=== PATIENT | male | born 1965 | race Caucasian/White ===

== ENCOUNTER 2017-12-12 23:52 | Inpatient (IN) ==
[2017-12-13] MEDS ORDERED: CEFEPIME 1 GM in NS 100 ML IV ONE (00:03)
[2017-12-13] MEDS ORDERED: LEVOFLOXACIN PB 750 MG/150 ML BAG IV ONE (00:03)
[2017-12-13] MEDS ORDERED: NS 1,000 ML IV ONE ×2 (00:03→01:38)
[2017-12-13] MEDS ORDERED: ALBUTEROL/IPRATROPIUM 2.5mg-0.5mg/3ml NEB AEROSOL ONE (00:08)
--- NOTE | 2017-12-13 00:09 | Emergency Department Report ---
Fever HPI - General Chief Complaint: Fever Stated Complaint: Sepsis Time Seen by Provider: 12/13/17 00:03 Source: patient, EMS, RN notes reviewed Mode of arrival: EMS Limitations: altered mental status - History of Present Illness HPI Narrative: Patient was diagnosed with right lower lobe pneumonia 2 days ago, and placed on Levaquin 500 milligrams daily. He has had 2 doses. Tonight when prison staff checked on him, the patient was incoherent, had significant decreased level of consciousness, had a fever of 102.8, was tachycardic in the 130s, and hypotensive. EMS was called for transport to the ER for probable sepsis. The patient's significant illness and schizophrenia, he is contributing very little to his medical history at this time. He is able to follow simple commands. - Related Data Home Medications Medication Instructions Recorded Confirmed Albuterol Sulfate [Proair Hfa] 2 puff INH Q6H PRN 12/13/17 12/13/17 Aspirin 1 tab PO DAILY 12/13/17 12/13/17 Benztropine [Cogentin] 0.5 tab PO DAILY 12/13/17 12/13/17 Calcium 500 + D [Os Andrea-D 500] 1 tab PO BID 12/13/17 12/13/17 Cholecalciferol (Vitamin D3) 1 tab PO DAILY 12/13/17 12/13/17 [Vitamin D3] Divalproex ER [Depakote ER] 3 tab PO HS 12/13/17 12/13/17 Fluticasone HFA [Flovent Hfa 110 1 puff INH BID 12/13/17 12/13/17 mcg] Furosemide [Lasix 20 mg Tab] 1 tab PO DAILY 12/13/17 12/13/17 Haloperidol 1 tab PO BID 12/13/17 12/13/17 Levofloxacin [Levaquin] 500 mg PO DAILY 12/13/17 12/13/17 Paliperidone Tab [Invega] 6 mg PO DAILY 12/13/17 12/13/17 Potassium Citrate [Potassium 10 meq PO DAILY 12/13/17 12/13/17 Citrate ER] Quetiapine Fumarate [Seroquel] 300 mg PO BID 12/13/17 12/13/17 Tiotropium Handihaler [Spiriva] 1 cap ORAL INH DAILY 12/13/17 12/13/17 Allergies Allergy/AdvReac Type Severity Reaction Status Date / Time No Known Allergies Allergy Verified 12/13/17 00:21 [facility] Patient Stated Medical History Chronic Obstructive Pulmonary Yes Disease (COPD) Other Musculoskeletal Yes: osteopenia Bipolar Disorder Yes Schizophrenia Yes: schizo-affective Schizophrenia/schizoaffective disorder Bipolar Bronchitis/COPD Tobacco addiction/abuse Periodic hypoxemia Osteopenia Surgical History: Unknown - Social History Smoking status: Current every day smoker Physical Exam - Limitations Limitations: altered mental status - General General appearance: in distress (patient is tachycardic, borderline hypotensive at 108/65, and O2 saturations are borderline low at 91-94% on room air. Positive diaphoresis, Patient does not appear to have any significant respiratory distress at this time however) - Normal Exams: Head:: Normocephalic without trauma Eyes:: Pupils are PERRLA w/ EOMI, No scleral icterus, irritation, or foreign bodies noted ENMT:: No facial trauma, nasal exudates, pharyngeal erythema, or exudates are noted Neck:: Full range of motion, without adenopathy, JVD, bruits or thyromegaly Abdomen:: Bowel sounds positive, soft, non-tender, non-distended, no hepatosplenomegaly, masses or bruits noted Lymphatic:: No lymphadenopathy, or lymphedema noted Musculoskeletal:: No tenderness, or deformity noted, good range of motion, all extremities Integumentary:: No rashes, hives, or bruising noted, hair and nails, without abnormality Neurological:: Patient is alert, and oriented, cranial nerves, motor/sensory/ cerebellar, exams w/o gross deficits, to observation Psychiatric:: Patient exhibits, appropriate attention, emotion and affect - Chest Chest inspection: Present: normal inspection, symmetric chest wall rise. Absent : tenderness - Respiratory Respiratory exam: Present: wheezes, prolonged expiratory phase. Absent: normal lung sounds bilaterally (course bilateral, mild wheezes in the bases), respiratory distress, stridor, accessory muscle use Course Vital Signs Temperature 97.8 F 12/12/17 23:52 Pulse Rate 121 H 12/12/17 23:52 Respiratory Rate 24 12/12/17 23:52 Blood Pressure 102/61 12/12/17 23:52 Pulse Oximetry 93 12/12/17 23:52 Temperature 97.8 F 12/12/17 23:52 Pulse Rate 104 H 12/13/17 01:00 Respiratory Rate 21 12/13/17 01:00 Blood Pressure 92/55 12/13/17 01:00 Pulse Oximetry 95 12/13/17 01:00 Fever - MDM Narrative Medical decision making narrative: Sepsis protocol was started and the patient, with IV fluid boluses, blood and urine cultures, cefepime will Levaquin and vancomycin are started after cultures are drawn. Patient is also given 2 DuoNeb's Patient is incontinent of urine, and with his critical state felt that fully catheter for accurate I stenosis appropriate. CBC - elevated white blood cell count with significant left shift to 10% bands CMP -minimal abnormalities Lactate -normal CXR - significant consolidations in the right upper and right middle lobes He is pending, as the patient was incontinent upon arrival, Nichols catheter is having to be placed, and patient has been resistant to this up to now Triple Antibiotic regimen has been started, second liter normal saline has been started as well Case is discussed with Dr. Zavala, we'll admit to CCU inpatient for by lobar pneumonia with severe sepsis - Lab Data Result diagrams: 12/13/17 00:20 12/13/17 00:20 Lab Results 12/13/17 12/13/17 12/13/17 Range/Units 00:20 00:20 00:20 WBC 14.2 H D (4.5-11.0) T/MM3 RBC 3.23 L (4.50-5.90) M/MM3 Hgb 10.8 L (13.5-17.5) GM/DL Hct 29.6 L (41-53) % MCV 91.6 (80-100) UM3 MCH 33.4 (26-34) UUG MCHC 36.5 (31-37) GM/DL RDW Std Deviation 45.9 (36.9-50.2) FL Plt Count 263 (130-400) T/MM3 MPV 8.7 L (9.4-12.4) UM3 Immature Gran % (Auto) Not performed Neut % (Auto) Not performed Lymph % (Auto) Not performed [place] % (Auto) Not performed Eos % (Auto) Not performed Baso % (Auto) Not performed Neut # (Auto) Not performed Lymph # (Auto) Not performed [place] # (Auto) Not performed Eos # (Auto) Not performed Baso # (Auto) Not performed Abs Immat Gran (auto) Not performed Neutrophils % (Manual) 75.0 H (33-66) % Band Neutrophils % 10.0 H (0-6) % Lymphocytes % (Manual) 6.0 L (23-45) % Monocytes % (Manual) 8.0 (0-9.0) % Eosinophils % (Manual) 1.0 (0-4) % Neutrophils # (Manual) 10.7 H (1.8-7.7) T/MM3 Band Neutrophils # 1.4 T/MM3 Lymphocytes # (Manual) 0.9 L (1-4.8) T/MM3 Monocytes # (Manual) 1.1 H (0-0.8) T/MM3 Eosinophils # (Manual) 0.1 (0-0.5) T/MM3 RBC Morph Comment Normal Turbidity < 20 (0-20) Sodium 128 L D (136-146) MEQ/L Potassium 3.8 (3.6-5) MEQ/L Chloride 96 L (98-107) MEQ/L Carbon Dioxide 22 (22-30) MEQ/L Anion Gap 10 (5-15) meq/L BUN 10.0 D (9-20) MG/DL Creatinine 1.0 D (0.8-1.5) mg/dL Estimated Creat Clear 95 (>50) mL/min GFR Calculation 78 (>60) mL/min BUN/Creatinine Ratio 10 (6-26) RATIO Glucose 103 (75-110) MG/DL Calculated Osmolality 246 L (261-280) MOSM/KG Calcium 8.6 (8.4-10.2) MG/DL Total Bilirubin 0.50 (0.20-1.30) MG/DL Icterus Index < 2 (0-7) AST 18 (17-59) U/L ALT 12 (1-50) U/L Alkaline Phosphatase 79 (38-126) U/L Total Protein 6.6 (6.3-8.2) g/dL Albumin 3.4 L (3.5-5.0) g/dL Globulin 3.2 (2.4-3.6) G/DL Albumin/Globulin Ratio 1.1 (1.1-2.2) RATIO Plasma Lactate 0.7 (0.6-2.2) MMOL/L Specimen Hemolysis < 15 (0-25) Critical Care Time Critical Care Time: Yes Total Critical Care Time: 45 Attestation: Required aggressive interventions and diagnostics for severe sepsis with pneumonia, hypotension, tachycardia, and difficulty breathing. Disposition Clinical Impression: Severe sepsis Pneumonia Qualifiers: Pneumonia type: due to unspecified organism Laterality: right Lung location: upper lobe of lung Qualified Code(s): J18.1 - Lobar pneumonia, unspecified organism Disposition: 02 To [facility] Acute Care Condition: Stable Prescriptions: No Action Paliperidone Tab [Invega] 6 mg PO DAILY Benztropine [Cogentin] 0.5 tab PO DAILY Tiotropium Handihaler [Spiriva] 1 cap ORAL INH DAILY Fluticasone HFA [Flovent Hfa 110 mcg] 1 puff INH BID Cholecalciferol (Vitamin D3) [Vitamin D3] 1 tab PO DAILY Haloperidol 1 tab PO BID Calcium 500 + D [Os Andrea-D 500] 1 tab PO BID Albuterol Sulfate [Proair Hfa] 2 puff INH Q6H PRN PRN Reason: Shortness Of Air/Wheezing Furosemide [Lasix 20 mg Tab] 1 tab PO DAILY Levofloxacin [Levaquin] 500 mg PO DAILY Quetiapine Fumarate [Seroquel] 300 mg PO BID Divalproex ER [Depakote ER] 3 tab PO HS Potassium Citrate [Potassium Citrate ER] 10 meq PO DAILY Aspirin 1 tab PO DAILY Referrals: Jennifer Thomas MD [Primary Care Provider] - - Seen By: physician
[2017-12-13] MEDS: SALINE FLUSH 10ml SYRINGE IVF PRN ×2 (00:23→21:03)
--- NOTE | 2017-12-13 01:55 | History & Physical Report ---
History of Present Illness Date: 12/13/17 Chief complaint: fever, cough, pneumonia HPI: Renato is a 52 y/o with h/o schizophrenia, bipolar, COPD who lives in [place] and presents to ED [facility] w/ having had high fever at [place] (102.9F), worsening cough and acute mental status changes. Patient diagnosed w/ pneumonia 2 days ago and started on Levaquin and has had 2 dose however despite treatment patient continued to get worse. Patient given Tylenol prior to leaving [facility] and arrived in ER and was Afebrile, however noted to have low BP and still w/ altered level of consciousness. In ER patient's sats okay on RA (94-96%) however he was tachypneic and tachycardic and BP most recently was 96/54. Tachycardia has improved w/ NS - currently on 2nd L of NS Patient has been given Cefipime, Levaquin and Vancomycin IV in the Er. Patient 's CXR showes RML and base of RUL pneumonia/consolidation, WBC is 14K however lactate is wnl. Na = 128. Patient has improved w/ 2 DuoNeb treatments, the IVFs and the antibiotics. BP still low so will admit the patient to CCU on the Hospitalist service for further evaluation and management. Past Medical History Medical History Updates: H/o Schizophrenia, bipolar disorder, COPD and osteopenia Surgical History: Unknown Family History: No significant family history reported Family History: As Above - Social History Smoking status: Current every day smoker Medications Home Medications Medication Instructions Recorded Confirmed Type Albuterol Sulfate [Proair Hfa] 2 puff INH Q6H PRN 12/13/17 12/13/17 History Aspirin 1 tab PO DAILY 12/13/17 12/13/17 History Benztropine [Cogentin] 0.5 tab PO DAILY 12/13/17 12/13/17 History Calcium 500 + D [Os Andrea-D 500] 1 tab PO BID 12/13/17 12/13/17 History Cholecalciferol (Vitamin D3) 1 tab PO DAILY 12/13/17 12/13/17 History [Vitamin D3] Divalproex ER [Depakote ER] 3 tab PO HS 12/13/17 12/13/17 History Fluticasone HFA [Flovent Hfa 110 1 puff INH BID 12/13/17 12/13/17 History mcg] Furosemide [Lasix 20 mg Tab] 1 tab PO DAILY 12/13/17 12/13/17 History Haloperidol 1 tab PO BID 12/13/17 12/13/17 History Levofloxacin [Levaquin] 500 mg PO DAILY 12/13/17 12/13/17 History Paliperidone Tab [Invega] 6 mg PO DAILY 12/13/17 12/13/17 History Potassium Citrate [Potassium 10 meq PO DAILY 12/13/17 12/13/17 History Citrate ER] Quetiapine Fumarate [Seroquel] 300 mg PO BID 12/13/17 12/13/17 History Tiotropium Handihaler [Spiriva] 1 cap ORAL INH DAILY 12/13/17 12/13/17 History Allergies Allergy/AdvReac Type Severity Reaction Status Date / Time No Known Allergies Allergy Verified 12/13/17 00:21 Exam Vital Signs: Temperature 97.8 F 12/12/17 23:52 Pulse Rate 104 H 12/13/17 01:00 Respiratory Rate 21 12/13/17 01:00 Blood Pressure 92/55 12/13/17 01:00 Pulse Oximetry 95 12/13/17 01:00 Telemetry Rhythm: Sinus Rhythm Height/Weight/BMI: Height 1.85 m Weight 76.8 kg - Constitutional Present: no acute distress, somnolent - Routine HEENT Exam Head: Present: normocephalic, atraumatic Eye: Present: EOMI, PERRL ENT: Present: mucous membranes dry, nares patent - Routine Neck Exam Present: supple. Absent: JVD - Routine Respiratory Exam Present: rhonchi, crackles. Absent: accessory muscle use, patient mechanically ventilated, dyspnea - Routine Cardiovascular Exam Present: RRR, S1, S2, tachycardia (mild) - Routine Abdominal Exam Present: soft, normoactive bowel sounds, non distended, non tender - Routine Extremities Exam Absent: cyanosis, clubbing, edema - Routine Neurological Exam Present: alert (wakes easily and is alert and awake for short period of time then returns to sleep) Results - Labs CBC & Chem 7: 12/13/17 04:48 12/13/17 04:48 Microbiology Results: Microbiology 12/13/17 00:20 Peripheral/Iv Start Blood Culture - Preliminary Culture Initiated - Results Pending 12/13/17 00:20 Peripheral/Iv Start Blood Culture - Preliminary Culture Initiated - Results Pending Assessment and Plan Assessment and Plan: Assessment: 1) Acute RML and RUL Pneumonia - failed outpatient therapy. HCAP as patient resides [place] 2) Acute Sepsis 3) Acute Dehydration 4) COPD exacerbation 5) Schizophrenia and Bipolar Disorder Plan: Cefepime 1g q 8 hours IV Vancomycin 1g q 24 hours - pharmacy to manage Levaquin 750mg IV q 24 hours IVFs that of NS at 125 cc/hour CLD when more awake and alert and able to follow commands and sit up SCDs Lovenox 40mg SQ once daily starting in AM [place] catheter to be placed in ER Labs in AM Patient to receive total of 2L IVFs in ER Blood cultures pending Home meds as indicated - hold Lasix and KCL SoluMedrol 125mg IV q 12 hours today, then reassess for further need DuoNeb sched q 6 hours Albuterol neb q2 hours prn Supportive care in the CCU Attending physician addendum 12/13/17: The patient was seen and examined by me this morning; admitted overnight after midnight. Chart reviewed as well as H&P, orders, medications, vitals and I/Os. Making urine, has munroe intact. On room air this morning, resting comfortably. Blood pressures have been stable overnight. Initially received 2L IVF and now on saline at 125 cc/hour. No wheezing on my lung exam; no edema. + scattered rhonchi on the right. Developing metabolic acidosis with saline administration; bicarb 19. Hypomagnesemic today; Mg 1.6 UA reviewed and unremarkable - Stop saline and start LR at 75 cc/hour for maintenance - When more awake and alert today will advance diet if tolerated - Continue cefepime, vancomycin per pharmacy, levaquin IV for broad coverage and follow culture results - Replete Mg with 2g IV over 6 hours - Continue IV protonix; will change to po if awake and taking po later today - Continue home psych medications - Surveillance labs in AM including BMP, CBC, Mg level - Duoneb treatments, IV solumedrol scheduled for COPD exacerbation component of acute resp failure - If vitals stable, more alert and taking po this afternoon will likely move to the floor at that time Discussed with bedside RN. DVT Prophylaxis: SCD's, Lovenox GI Prophylaxis: Protonix Resuscitation Status: Full Code - Physician Narrative Narrative: Date: 12/13/17 Time: 0148 Hospital Course Summary Disclaimer: The visit summary below is not to be considered part of the above Progress Note.
[2017-12-13] MEDS ORDERED: NS 1,000 ML IV SCH ×2 (02:15→02:45)
[2017-12-13] MEDS ORDERED: VANCOMYCIN - PHARMACY CONSULT MC ONE (02:15)
[2017-12-13] MEDS ORDERED: ACETAMINOPHEN 325 MG TABLET PO PRN (02:15)
[2017-12-13] MEDS ORDERED: ALBUTEROL 2.5mg/3ml (0.083%) NEB AEROSOL PRN (02:34)
[2017-12-13] MEDS: METHYLPREDNISOLONE SOD SUCC 125mg/2ml INJECTION IVP SCH ×3 (02:45→21:03)
[2017-12-13 02:55] VITALS: BMI 58.9
[2017-12-13] MEDS ORDERED: FALL RISK - PHARMACY CONSULT MC ONE (03:10)
[2017-12-13] MEDS: BUDESONIDE INH.SOLN 0.5mg/2ml NEB AEROSOL SCH ×2 (06:28→20:15)
[2017-12-13] MEDS: ALBUTEROL/IPRATROPIUM 2.5mg-0.5mg/3ml NEB AEROSOL SCH ×4 (06:28→20:15)
[2017-12-13] MEDS: CEFEPIME 1 GM in NS 100 ML IV SCH ×2 (08:59→16:50)
[2017-12-13] MEDS: ENOXAPARIN 40 MG/0.4 ML INJECTION SQ SCH (08:59)
[2017-12-13] MEDS ORDERED: FLluticasone HFA 110mcg inhaler ORAL INH SCH (09:00)
[2017-12-13] MEDS ORDERED: PANTOPRAZOLE 40 MG INJECTION IVP SCH (09:00)
[2017-12-13] MEDS: ASPIRIN 81 MG CHEWABLE TABLET PO SCH (09:30)
[2017-12-13] MEDS: BENZTROPINE 1 MG TABLET PO SCH (09:31)
[2017-12-13] MEDS: CALCIUM 500 + VIT D 200 TABLET PO SCH ×2 (09:31→21:03)
[2017-12-13] MEDS: HALOPERIDOL 1 MG TABLET PO SCH ×2 (09:32→21:03)
[2017-12-13] MEDS: QUETIAPINE 100 MG TABLET PO SCH ×2 (09:32→21:02)
[2017-12-13] MEDS: PALIPERIDONE ER 1.5mg TABLET PO SCH (09:33)
--- NOTE | 2017-12-13 10:03 | Pharmacy Consult-Antibiotics ---
Pharmacy Consult-Vancomycin - Laboratory Information WBC 12.6 T/MM3 (4.5-11.0) H 12/13/17 04:48 BUN 8.0 MG/DL (9-20) L 12/13/17 04:48 Creatinine 0.6 mg/dL (0.8-1.5) L D 12/13/17 04:48 - Consult Information VANCOMYCIN CONSULT: Dx: SEPSIS 52 y.o. Male with recent outpatient diagnosis of pneumonia and Levaquin therapy , fever of 102.9, worsening cough admitted to CCU. Cefepime, and Vancomycin added to Levaquin for empiric treatment of Sepsis goal Vancomycin trough range= 15 to 20 mcg/ml Current Renal Fx: SCr = 0.6 mg/dl. Will give Vancomycin 2,000 mg IV q8hrs. Will continue to monitor and adjust regimen to maintain therapeutic levels. Thank you. Arpita Coleman [facility]
[2017-12-13] MEDS: MAGNESIUM SULFATE 1gm PREMIX 1 GM/100 ML BAG IV SCH ×2 (10:27→11:32)
[2017-12-13] MEDS: LR 1,000 ML IV SCH (10:34)
--- NOTE | 2017-12-13 13:20 | XRay Report ---
Indication: pneumonia, sepsis XR chest 1V: Comparison: 12/10/2017 Technique: Single view chest Findings: Patient showed significantly more dense consolidation involving the right upper lobe on the current study compared to the previous examination. This suggests pneumonic infiltrate. Heart, mediastinum and central vascularity are unremarkable. Mild chronic changes seen on the left chest. Impression: Patient now shows significant consolidation in the lateral lower aspect of the right upper lobe consistent with pneumonia. Follow-up after medical treatment recommended. .
[2017-12-13] MEDS: LEVOFLOXACIN PB 750 MG/150 ML BAG IV SCH (23:16)
[2017-12-14] MEDS: CEFEPIME 1 GM in NS 100 ML IV SCH ×3 (04:27→15:10)
[2017-12-14] MEDS: LR 1,000 ML IV SCH ×2 (04:57→15:07)
[2017-12-14] MEDS: PANTOPRAZOLE 40 MG TABLET PO SCH (06:50)
[2017-12-14] MEDS: BUDESONIDE INH.SOLN 0.5mg/2ml NEB AEROSOL SCH ×5 (07:13→20:55)
[2017-12-14] MEDS: ALBUTEROL/IPRATROPIUM 2.5mg-0.5mg/3ml NEB AEROSOL SCH ×4 (07:13→19:59)
[2017-12-14] MEDS: METHYLPREDNISOLONE SOD SUCC 125mg/2ml INJECTION IVP SCH ×2 (08:24→20:32)
[2017-12-14] MEDS: PALIPERIDONE ER 1.5mg TABLET PO SCH (08:26)
[2017-12-14] MEDS: QUETIAPINE 100 MG TABLET PO SCH ×2 (08:26→20:33)
[2017-12-14] MEDS: ENOXAPARIN 40 MG/0.4 ML INJECTION SQ SCH (08:26)
[2017-12-14] MEDS: CALCIUM 500 + VIT D 200 TABLET PO SCH ×2 (08:27→20:32)
[2017-12-14] MEDS: HALOPERIDOL 1 MG TABLET PO SCH ×2 (08:27→20:32)
[2017-12-14] MEDS: ASPIRIN 81 MG CHEWABLE TABLET PO SCH (08:27)
[2017-12-14] MEDS: BENZTROPINE 1 MG TABLET PO SCH (08:27)
--- NOTE | 2017-12-14 10:35 | Progress Note ---
- Date 12/14/17 Subjective: Mr Franz is seen today in follow-up. He is sitting up in the chair, currently breathing on room air without evidence of distress. He does report having continued cough that is nonproductive. He reports that when he coughs. He has discomfort in the right side of his chest. He denies feeling short of breath or having nausea or lightheadedness. Appetite is good, as he did eat 100% of breakfast today. Urinating without difficulty. Objective Vital signs: Temperature 97.0 F 12/14/17 07:32 Pulse Rate 99 12/14/17 07:32 Respiratory Rate 18 12/14/17 07:32 Blood Pressure 124/82 12/14/17 07:32 Pulse Oximetry 93 12/14/17 07:32 Height/Weight/BMI: Height 1.73 m Weight 83.2 kg Body Mass Index 58.9 - Constitutional Present: no acute distress, well nourished, well developed - Routine HEENT Exam Eye: Present: EOMI ENT: Present: mucous membranes moist, dentition normal - Routine Respiratory Exam Present: diminished air movement (bilateral - posterior). Absent: wheezes - Routine Cardiovascular Exam Present: RRR, S1, S2. Absent: murmur - Routine Abdominal Exam Present: soft, normoactive bowel sounds, non distended. Absent: tenderness - Routine Extremities Exam Present: no edema - Routine Skin Exam Present: intact, dry, warm - Routine Neurological Exam Present: alert, oriented X3, CN II-XII intact - Routine Lymphatic Exam Lymphatic: Absent: adenopathy - Routine Psychiatric Exam Present: cooperative Results - Labs CBC & Chem 7: 12/14/17 06:40 12/14/17 06:40 Microbiology Results: Microbiology 12/13/17 00:20 Peripheral/Iv Start Blood Culture - Preliminary No Growth After 1 Day 12/13/17 00:20 Peripheral/Iv Start Blood Culture - Preliminary No Growth After 1 Day Assessment and Plan Assessment and Plan: Assessment: Acute RML and RUL Pneumonia - failed outpatient therapy. HCAP as patient resides in [place] Acute Sepsis- POA Leukocytosis- ? r/t IV steroid use Hyponatremia Acute Dehydration COPD exacerbation Schizophrenia and Bipolar Disorder Plan: Continue on scheduled DuoNeb and Pulmicort breathing treatments. Continue with antibiotic treatment including cefepime, Levaquin, and vancomycin for triple coverage. Continue home psych medications Noted increasing leukocytosis today from 12.6, up to 20.1-may be secondary to IV steroid use. Persistent hyponatremia-will continue to follow. May consider changing IV fluids Patient continues on LR at 75 mL per hour for ongoing hydration. Encourage ambulation TID Check CBC and BMP tomorrow morning to follow blood counts, renal function and electrolytes DVT Prophylaxis: SCD's, Lovenox GI Prophylaxis: Protonix Resuscitation Status: Full Code - Physician Narrative Physician: Kathleen Miranda MD Narrative: Date: 12/14/17 Time: 1639 I have independently evaluated and examined this patient. I reviewed the chart, the patient's history, and the [employer]/PA's documented findings as above. We discussed and formulated the assessment and plan as above with additions as below: Renato describes mild ache in his right anterior chest with cough but denies sputum production or dyspnea. Oxygen has been titrated off. White count remains elevated with 32% bands on differential today. NAD, speech slightly mumbled Respirations nonlabored but breath sounds diminished; slightly coarse anteriorly on the right Admission chest x-ray with right upper/middle lobe infiltrates-raises question of aspiration pneumonia; repeat chest x-ray in a.m. Speech therapy to be consulted Sputum culture ordered Nursing reports good oral intake-IV fluids discontinued Hyponatremia likely result of psychiatric medications. Valproic acid level with a.m. labs. Hospital Course Summary Disclaimer: The visit summary below is not to be considered part of the above Progress Note. Hospital Course: Assessment: 1) Acute RML and RUL Pneumonia - failed outpatient therapy. HCAP as patient resides in [place] 2) Acute Sepsis 3) Acute Dehydration 4) COPD exacerbation 5) Schizophrenia and Bipolar Disorder Plan: Cefepime 1g q 8 hours IV Vancomycin 1g q 24 hours - pharmacy to manage Levaquin 750mg IV q 24 hours IVFs that of NS at 125 cc/hour CLD when more awake and alert and able to follow commands and sit up SCDs Lovenox 40mg SQ once daily starting in AM [place] catheter to be placed in ER Labs in AM Patient to receive total of 2L IVFs in ER Blood cultures pending Home meds as indicated - hold Lasix and KCL SoluMedrol 125mg IV q 12 hours today, then reassess for further need DuoNeb sched q 6 hours Albuterol neb q2 hours prn Supportive care in the CCU Attending physician addendum 12/13/17: The patient was seen and examined by me this morning; admitted overnight after midnight. Chart reviewed as well as H&P, orders, medications, vitals and I/Os. Making urine, has munroe intact. On room air this morning, resting comfortably. Blood pressures have been stable overnight. Initially received 2L IVF and now on saline at 125 cc/hour. No wheezing on my lung exam; no edema. + scattered rhonchi on the right. Developing metabolic acidosis with saline administration; bicarb 19. Hypomagnesemic today; Mg 1.6 UA reviewed and unremarkable - Stop saline and start LR at 75 cc/hour for maintenance - When more awake and alert today will advance diet if tolerated - Continue cefepime, vancomycin per pharmacy, levaquin IV for broad coverage and follow culture results - Replete Mg with 2g IV over 6 hours - Continue IV protonix; will change to po if awake and taking po later today - Continue home psych medications - Surveillance labs in AM including BMP, CBC, Mg level - Duoneb treatments, IV solumedrol scheduled for COPD exacerbation component of acute resp failure - If vitals stable, more alert and taking po this afternoon will likely move to the floor at that time 12/14/17 Continue on scheduled DuoNeb and Pulmicort breathing treatments. Continue with antibiotic treatment including cefepime, Levaquin, and vancomycin for triple coverage. Continue home psych medications. Noted increasing leukocytosis today from 12.6, up to 20.1-may be secondary to IV steroid use. Persistent hyponatremia-will continue to follow. May consider changing IV fluids.
[2017-12-14] MEDS: VANCOMYCIN 2,000 MG in NS 500 ML IV SCH (16:30)
[2017-12-14] MEDS: SALINE FLUSH 10ml SYRINGE IVF PRN (20:34)
[2017-12-14] MEDS: LEVOFLOXACIN PB 750 MG/150 ML BAG IV SCH (23:37)
[2017-12-15] MEDS: CEFEPIME 1 GM in NS 100 ML IV SCH ×4 (01:10→23:56)
[2017-12-15] MEDS: VANCOMYCIN 2,000 MG in NS 500 ML IV SCH ×2 (01:45→09:38)
[2017-12-15] MEDS: ALBUTEROL/IPRATROPIUM 2.5mg-0.5mg/3ml NEB AEROSOL SCH ×4 (05:30→19:30)
[2017-12-15] MEDS: BUDESONIDE INH.SOLN 0.5mg/2ml NEB AEROSOL SCH ×2 (05:30→19:30)
[2017-12-15] MEDS: PANTOPRAZOLE 40 MG TABLET PO SCH (06:46)
--- NOTE | 2017-12-15 08:02 | XRay Report ---
INDICATION: pneumonia PROCEDURE: CHEST 2-VIEWS UPRIGHT (PA & LAT) Encounter: Initial COMPARISON: December 13, 2017 FINDINGS: Right upper lobe airspace consolidation has improved with a moderate amount remaining. Patchy airspace opacities in the left and right lower lobes are stable. Small pleural effusions are stable. No pneumothorax. Heart size and mediastinal contours are stable. Pulmonary vascularity is unchanged. Impression: Slight improvement in the right upper lobe pneumonia. .
[2017-12-15] MEDS: PALIPERIDONE ER 1.5mg TABLET PO SCH (08:16)
[2017-12-15] MEDS: CALCIUM 500 + VIT D 200 TABLET PO SCH ×2 (08:16→20:13)
[2017-12-15] MEDS: ASPIRIN 81 MG CHEWABLE TABLET PO SCH (08:16)
[2017-12-15] MEDS: HALOPERIDOL 1 MG TABLET PO SCH ×2 (08:16→20:13)
[2017-12-15] MEDS: QUETIAPINE 100 MG TABLET PO SCH ×2 (08:17→20:12)
[2017-12-15] MEDS: BENZTROPINE 1 MG TABLET PO SCH (08:17)
[2017-12-15] MEDS: METHYLPREDNISOLONE SOD SUCC 125mg/2ml INJECTION IVP SCH ×2 (08:18→20:13)
[2017-12-15] MEDS: ENOXAPARIN 40 MG/0.4 ML INJECTION SQ SCH (08:18)
--- NOTE | 2017-12-15 14:40 | Progress Note ---
- Date 12/15/17 Subjective: Renato feels quite well today and inquires about being discharged from the hospital. He denies any SOA or cough or chest pain. He denies feeling weak or dizzy with standing or ambulation. He denies abdominal pain or nausea and reports that he's been eating and drinking fine. Objective Vital signs: Temperature 96.9 F 12/15/17 07:12 Pulse Rate 100 12/15/17 07:12 Respiratory Rate 18 12/15/17 14:17 Blood Pressure 145/89 H 12/15/17 07:12 Pulse Oximetry 96 12/15/17 14:17 Height/Weight/BMI: Height 1.73 m Weight 86.7 kg Body Mass Index 58.9 - Constitutional Present: no acute distress, well nourished, well developed - Routine HEENT Exam Head: Present: normocephalic Eye: Present: PERRL. Absent: conjunctival icterus, scleral injection ENT: Present: mucous membranes moist, oropharynx clear - Routine Respiratory Exam Comments: slightly coarse RUL otherwise clear - Routine Cardiovascular Exam Present: RRR, S1, S2 - Routine Abdominal Exam Present: soft, normoactive bowel sounds, non distended, non tender - Routine Extremities Exam Present: edema (trace BLE) - Routine Skin Exam Present: intact, dry, warm - Routine Neurological Exam Present: alert, oriented X3, normal speech - Routine Psychiatric Exam Present: normal thought process, cooperative Results - Labs CBC & Chem 7: 12/15/17 03:58 12/15/17 03:58 Microbiology Results: Microbiology 12/13/17 00:20 Peripheral/Iv Start Blood Culture - Preliminary No Growth After 2 Days 12/13/17 00:20 Peripheral/Iv Start Blood Culture - Preliminary No Growth After 2 Days Assessment and Plan (1) Pneumonia Current visit: Yes Status: Acute Assessment and Plan: Assessment: Acute RML and RUL Pneumonia - failed outpatient therapy. HCAP as patient resides in [place] Acute Sepsis- POA Leukocytosis- ? r/t IV steroid use Hyponatremia Acute Dehydration COPD exacerbation Schizophrenia and Bipolar Disorder Plan: CXR repeated today and personally reviewed - still showing RUL infiltrate. Continue triple antibiotics though may de-escalate soon. Maintaining sats on room air. Decrease steroid dose to 62.5 mg IV BID. WBC remains elevated at 20.6 but bands have decreased to 9%. Hyponatremia is corrected. Evaluated by speech therapy today: no impairments were noted. DVT Prophylaxis: SCD's, Lovenox GI Prophylaxis: Protonix Resuscitation Status: Full Code - Physician Narrative Physician: Kathleen Miranda MD Narrative: Date: 12/15/17 Time: 1730 I have independently evaluated and examined this patient. I reviewed the chart, the patient's history, and the HEALTHCARE PROF/PA's documented findings as above. We discussed and formulated the assessment and plan as above with additions as below: Mr. Franz reported having some minor dyspnea off and on but that generally his breathing was a lot better. He denied sputum production and was on room air when seen. Telemetry reviewed-consistently sinus rhythm. Patient is alert, mildly dysarthric but able to communicate with minimal difficulty Respirations are nonlabored, good airflow, breath sounds clear posteriorly; no wheezing, minimal coarse sounds anterior right lung Blood cultures negative at 48 hours, no sputum available for culture. Discontinue vancomycin, Levaquin converted to oral administration. Repeat chest x-ray reviewed by myself-persistent right upper lobe infiltrate/ pneumonia-slightly improved from admission. Reassess in a.m. for further de-escalation of antibiotics. Speech therapy evaluation completed-no evidence of aspiration. Check resp panel. Hospital Course Summary Disclaimer: The visit summary below is not to be considered part of the above Progress Note. Hospital Course: Assessment: 1) Acute RML and RUL Pneumonia - failed outpatient therapy. HCAP as patient resides in [place] 2) Acute Sepsis 3) Acute Dehydration 4) COPD exacerbation 5) Schizophrenia and Bipolar Disorder Plan: Cefepime 1g q 8 hours IV Vancomycin 1g q 24 hours - pharmacy to manage Levaquin 750mg IV q 24 hours IVFs that of NS at 125 cc/hour CLD when more awake and alert and able to follow commands and sit up SCDs Lovenox 40mg SQ once daily starting in AM Munroe catheter to be placed in ER Labs in AM Patient to receive total of 2L IVFs in ER Blood cultures pending Home meds as indicated - hold Lasix and KCL SoluMedrol 125mg IV q 12 hours today, then reassess for further need DuoNeb sched q 6 hours Albuterol neb q2 hours prn Supportive care in the CCU Attending physician addendum 12/13/17: The patient was seen and examined by me this morning; admitted overnight after midnight. Chart reviewed as well as H&P, orders, medications, vitals and I/Os. Making urine, has munroe intact. On room air this morning, resting comfortably. Blood pressures have been stable overnight. Initially received 2L IVF and now on saline at 125 cc/hour. No wheezing on my lung exam; no edema. + scattered rhonchi on the right. Developing metabolic acidosis with saline administration; bicarb 19. Hypomagnesemic today; Mg 1.6 UA reviewed and unremarkable - Stop saline and start LR at 75 cc/hour for maintenance - When more awake and alert today will advance diet if tolerated - Continue cefepime, vancomycin per pharmacy, levaquin IV for broad coverage and follow culture results - Replete Mg with 2g IV over 6 hours - Continue IV protonix; will change to po if awake and taking po later today - Continue home psych medications - Surveillance labs in AM including BMP, CBC, Mg level - Duoneb treatments, IV solumedrol scheduled for COPD exacerbation component of acute resp failure - If vitals stable, more alert and taking po this afternoon will likely move to the floor at that time 12/14/17 Continue on scheduled DuoNeb and Pulmicort breathing treatments. Continue with antibiotic treatment including cefepime, Levaquin, and vancomycin for triple coverage. Continue home psych medications. Noted increasing leukocytosis today from 12.6, up to 20.1-may be secondary to IV steroid use. Persistent hyponatremia-will continue to follow. 12/15/17 CXR repeated today and personally reviewed - still showing RUL infiltrate. Blood cultures negative at 48 hours-discontinue vancomycin. Maintaining sats on room air. Decrease steroid dose to 62.5 mg IV BID. WBC remains elevated at 20.6 but bands have decreased to 9%. Hyponatremia is corrected. Evaluated by speech therapy today: no impairments were noted.
[2017-12-16] MEDS: ALBUTEROL/IPRATROPIUM 2.5mg-0.5mg/3ml NEB AEROSOL SCH ×2 (05:21→11:16)
[2017-12-16] MEDS: BUDESONIDE INH.SOLN 0.5mg/2ml NEB AEROSOL SCH (05:21)
[2017-12-16 05:24] VITALS: RESP 16
[2017-12-16] MEDS: PANTOPRAZOLE 40 MG TABLET PO SCH (05:57)
[2017-12-16] MEDS ORDERED: LEVOFLOXACIN 750 MG TABLET PO SCH (06:30)
[2017-12-16 07:20] VITALS: BP 120/65; PULSE 84; TEMP 96.5; O2SAT 95
[2017-12-16] MEDS: PALIPERIDONE ER 1.5mg TABLET PO SCH (08:11)
[2017-12-16] MEDS: CALCIUM 500 + VIT D 200 TABLET PO SCH (08:11)
[2017-12-16] MEDS: HALOPERIDOL 1 MG TABLET PO SCH (08:11)
[2017-12-16] MEDS: QUETIAPINE 100 MG TABLET PO SCH (08:11)
[2017-12-16] MEDS: METHYLPREDNISOLONE SOD SUCC 125mg/2ml INJECTION IVP SCH (08:11)
[2017-12-16] MEDS: BENZTROPINE 1 MG TABLET PO SCH (08:11)
[2017-12-16] MEDS: CEFEPIME 1 GM in NS 100 ML IV SCH (08:12)
[2017-12-16] MEDS: ASPIRIN 81 MG CHEWABLE TABLET PO SCH (08:12)
[2017-12-16] MEDS: ENOXAPARIN 40 MG/0.4 ML INJECTION SQ SCH (08:12)
[2017-12-16] MEDS: SALINE FLUSH 10ml SYRINGE IVF PRN (08:12)
--- NOTE | 2017-12-16 14:37 | Discharge Summary ---
Discharge Information Date of admission: 12/13/17 01:32 Anticipated date of discharge: 12/16/17 Attending Physician: Kathleen Miranda MD Primary care physician: Jennifer Thomas MD Consults: None - Discharge Diagnosis (1) Pneumonia Status: Acute Acute RML and RUL Pneumonia - failed outpatient therapy. HCAP as patient resides in [place] Acute Sepsis- POA Leukocytosis- ? r/t IV steroid use Hyponatremia Acute Dehydration COPD exacerbation Schizophrenia and Bipolar Disorder - Procedures Procedures: None - Laboratory Labs: 12/16/17 04:43 12/16/17 04:43 Laboratory Tests 12/13/17 12/13/17 12/14/17 00:20 04:48 06:40 WBC 14.2 H D 12.6 H 20.1 H D 12/14/17 12/15/17 12/16/17 06:40 03:58 04:43 WBC 20.1 H 20.6 H 17.0 H Laboratory Tests 12/13/17 12/14/17 00:20 06:40 Albumin 3.4 L 3.0 L Laboratory Tests 12/16/17 12:27 Adenovirus (PCR) Negative B.parapertussis DNA PCR Negative C. pneumoniae DNA (PCR) Negative Coronavirus OC43 (PCR) Negative Coronavirus HKU1 (PCR) Negative Coronavirus 229E (PCR) Negative Coronavirus NL63 (PCR) Negative Human Metapneumovir PCR Negative Influenza Type A (PCR) Negative Influenza Type B (PCR) Negative M. pneumoniae (PCR) Negative Parainfluenza 1 (PCR) Negative Parainfluenza 2 (PCR) Negative Parainfluenza 3 (PCR) Negative Parainfluenza 4 (PCR) Negative RSV (PCR) Negative Entero/Rhino (PCR) Negative Laboratory Tests 12/13/17 12/13/17 12/14/17 00:20 04:48 06:40 Sodium 128 L D 132 L 131 L 12/15/17 12/16/17 03:58 04:43 Sodium 136 137 Laboratory Tests 12/13/17 00:20 Plasma Lactate 0.7 - Microbiology Microbiology 12/13/17 00:20 Peripheral/Iv Start Blood Culture - Preliminary No Growth After 3 Days 12/13/17 00:20 Peripheral/Iv Start Blood Culture - Preliminary No Growth After 3 Days - Radiology Radiology: 12/13/17-chest x-ray- Impression: Patient now shows significant consolidation in the lateral lower aspect of the right upper lobe consistent with pneumonia. Follow-up after medical treatment recommended. 12/15/17-chest x-ray- Impression: Slight improvement in the right upper lobe pneumonia. - Pathology None History of Present Illness HPI: Renato is a 52 y/o with h/o schizophrenia, bipolar, COPD who lives in [place] and presents to ED tonight w/ having had high fever at [place] (102.9F), worsening cough and acute mental status changes. Patient diagnosed w/ pneumonia 2 days ago and started on Levaquin and has had 2 dose however despite treatment patient continued to get worse. Patient given Tylenol prior to leaving [facility] and arrived in ER and was Afebrile, however noted to have low BP and still w/ altered level of consciousness. In ER patient's sats okay on RA (94-96%) however he was tachypneic and tachycardic and BP most recently was 96/54. Tachycardia has improved w/ NS - currently on 2nd L of NS Patient has been given Cefipime, Levaquin and Vancomycin IV in the Er. Patient 's CXR showes RML and base of RUL pneumonia/consolidation, WBC is 14K however lactate is wnl. Na = 128. Patient has improved w/ 2 DuoNeb treatments, the IVFs and the antibiotics. BP still low so will admit the patient to CCU on the Hospitalist service for further evaluation and management. Objective Vital signs: Temperature 96.5 F L 12/16/17 07:18 Pulse Rate 84 12/16/17 07:18 Respiratory Rate 16 12/16/17 11:16 Blood Pressure 120/65 12/16/17 07:18 Pulse Oximetry 95 12/16/17 13:27 Height/Weight/BMI: Height 1.73 m Weight 88.2 kg Body Mass Index 58.9 - Constitutional Present: no acute distress, well nourished, well developed - Routine HEENT Exam Eye: Present: EOMI ENT: Present: mucous membranes moist, dentition normal - Routine Respiratory Exam Present: CTA bilaterally, diminished air movement (posterior). Absent: wheezes - Routine Cardiovascular Exam Present: RRR, S1, S2. Absent: murmur - Routine Abdominal Exam Present: soft, normoactive bowel sounds, non distended. Absent: tenderness - Routine Extremities Exam Present: full ROM - Routine Skin Exam Present: intact, dry, warm - Routine Neurological Exam Present: alert, oriented X3, CN II-XII intact, moving all extremities - Routine Lymphatic Exam Lymphatic: Absent: adenopathy - Routine Psychiatric Exam Present: normal affect, cooperative Hospital Course This is a general summary of the patient's hospital course. For more details refer to the complete medical record. Hospital course: 12/13/17 Assessment: 1) Acute RML and RUL Pneumonia - failed outpatient therapy. HCAP as patient resides in [place] 2) Acute Sepsis 3) Acute Dehydration 4) COPD exacerbation 5) Schizophrenia and Bipolar Disorder Plan: Cefepime 1g q 8 hours IV Vancomycin 1g q 24 hours - pharmacy to manage Levaquin 750mg IV q 24 hours IVFs that of NS at 125 cc/hour CLD when more awake and alert and able to follow commands and sit up SCDs Lovenox 40mg SQ once daily starting in AM Mun[place] catheter to be placed in ER Labs in AM Patient to receive total of 2L IVFs in ER Blood cultures pending Home meds as indicated - hold Lasix and KCL SoluMedrol 125mg IV q 12 hours today, then reassess for further need DuoNeb sched q 6 hours Albuterol neb q2 hours prn Supportive care in the CCU Attending physician addendum 12/13/17 The patient was seen and examined by me this morning; admitted overnight after midnight. Chart reviewed as well as H&P, orders, medications, vitals and I/Os. Making urine, has munroe intact. On room air this morning, resting comfortably. Blood pressures have been stable overnight. Initially received 2L IVF and now on saline at 125 cc/hour. No wheezing on my lung exam; no edema. + scattered rhonchi on the right. Developing metabolic acidosis with saline administration; bicarb 19. Hypomagnesemic today; Mg 1.6 UA reviewed and unremarkable - Stop saline and start LR at 75 cc/hour for maintenance - When more awake and alert today will advance diet if tolerated - Continue cefepime, vancomycin per pharmacy, levaquin IV for broad coverage and follow culture results - Replete Mg with 2g IV over 6 hours - Continue IV protonix; will change to po if awake and taking po later today - Continue home psych medications - Surveillance labs in AM including BMP, CBC, Mg level - Duoneb treatments, IV solumedrol scheduled for COPD exacerbation component of acute resp failure - If vitals stable, more alert and taking po this afternoon will likely move to the floor at that time 12/14/17 Continue on scheduled DuoNeb and Pulmicort breathing treatments. Continue with antibiotic treatment including cefepime, Levaquin, and vancomycin for triple coverage. Continue home psych medications. Noted increasing leukocytosis today from 12.6, up to 20.1-may be secondary to IV steroid use. Persistent hyponatremia-will continue to follow. 12/15/17 CXR repeated today and personally reviewed - still showing RUL infiltrate. Blood cultures negative at 48 hours-discontinue vancomycin. Maintaining sats on room air. Decrease steroid dose to 62.5 mg IV BID. WBC remains elevated at 20.6 but bands have decreased to 9%. Hyponatremia is corrected. Evaluated by speech therapy today: no impairments were noted. 12/16/17-discharge Renato is seen and examined today prior to discharge. He has been weaned down to room air and denies feeling short of breath. He does report cough seems to have improved. Plan is to discharge patient back to [place] in [place] where he currently resides. He will continue to require antibiotic therapy for a full 10 days of coverage. Levaquin 750 milligrams daily for 4 additional days, and augmentation 875 twice a day for 6 additional days. We will continue him on a prednisone taper. The rest patient will continue on his normal home medications. He is encouraged to follow-up and be seen by his primary care provider in the next 1 week, Dr. Thomas Discharged in stable condition. Time spent with patient: discharge greater than 30 minutes Resuscitation Status: Full Code Discharge Plan - Discharge Disposition Discharge Date: 12/16/17 Disposition: 01 Discharged Home, Self-Care *Condition: Stable Reason For Visit (Visit label in EMR): pneumonia with sepsis - Discharge Medications *Discharge Medications: New Amox/Clav [Augmentin 875/125] 875 mg PO BID 6 Days #12 tab Levofloxacin [Levaquin] 750 mg PO ACB 4 Days #4 tab predniSONE [Prednisone] See Protocol PO DAILY #18 tab Calcium 500 + D [Os Andrea-D 500] 1 tab PO BID tab Continue Paliperidone Tab [Invega] 6 mg PO DAILY Benztropine [Cogentin] 0.5 tab PO DAILY Tiotropium Handihaler [Spiriva] 1 cap ORAL INH DAILY Fluticasone HFA [Flovent Hfa 110 mcg] 1 puff INH BID Cholecalciferol (Vitamin D3) [Vitamin D3] 1 tab PO DAILY Haloperidol 1 tab PO BID Calcium 500 + D [Os Andrea-D 500] 1 tab PO BID Albuterol Sulfate [Proair Hfa] 2 puff INH Q6H PRN PRN Reason: Shortness Of Air/Wheezing Furosemide [Lasix 20 mg Tab] 1 tab PO DAILY Quetiapine Fumarate [Seroquel] 300 mg PO BID Divalproex ER [Depakote ER] 3 tab PO HS Potassium Citrate [Potassium Citrate ER] 10 meq PO DAILY Aspirin 1 tab PO DAILY Discontinued Levofloxacin [Levaquin] 500 mg PO DAILY - Discharge Packet/Instructions *Diet: Regular diet *Activity: Activity as tolerated *Pain Management/Treatment: Tylenol as needed for pain *Wound Care: None Additional Instructions: Patient will continue to require antibiotics-Levaquin daily for 4 additional days, Augmentin twice a day for 6 additional days total antibiotic therapy 10 days. Prednisone taper as directed *Expected Signs/Symptoms: Continued improvement in coughing and breathing *Notify Physician if: Risk, chills, difficulty breathing, vomiting or other concerning symptoms *During Business Hours Contact: Dr. Thomas *After Business Hours Contact: Call on-call provider for Dr. Thomas, or present to the emergency room *Pending Lab/Results: No Pending Lab - Referrals/Follow Up *Referrals/Follow Up: Jennifer Thomas MD [Primary Care Provider] - (Please have patient evaluated by primary care provider in one week, Dr. Thomas) - Patient Handouts Patient Handouts: Sepsis (GEN), Pneumonia (GEN) - Dismissal Complete Discharge Instructions are:: Complete Physician Narrative - Narrative Physician: Kathleen Miranda MD Attestation Narrative: Date: 12/16/17 Time: 1639 I have independently evaluated and examined this patient. I reviewed the chart, the patient's history, and the CRIB ATTENDANT/PA's documented findings as above. We discussed and formulated the assessment and plan as above with additions as below: Mr. Franz reports that his breathing is better and that he has almost no residual cough. He denies anterior right sided pleuritic pain any longer and is on room air with stable oxygen saturations. He briefly desaturated to 86% when he was up to the bathroom overnight prompting resumption of oxygen for the remainder of the night. NAD, alert, respirations nonlabored with diminished airflow but no wheezing, crackles, or rhonchi. Residual infiltrate on chest x-ray 12/15; complete 10 day course of antibiotics but stable for discharge at this time. Consider follow-up chest x-ray after antibiotics completed. Breath sounds significantly improved with steroids-taper redness on over short period of time (30mg x 3d--> 20mg x 3d--> 10mg x 3d).
== END 2017-12-16 16:35 | disposition home or self-care (01) | DRG 871 ==
LOC: ED 23:52 → EDHOLD 12-13 01:32 → SUATTDRO 12-13 01:32 → CCU 12-13 02:00 → MED 12-13 18:10
PROVIDERS: ADMIT Internal Medicine; ATTEND Internal Medicine